=== PATIENT | male | born 1970 | race Caucasian/White ===

== ENCOUNTER 2021-01-31 13:21 | Emergency (ER) | payer BC ==
[2021-01-31] MEDS ORDERED: KETOROLAC TROMETHAMINE 15 MG/ML VIAL IM ONE (13:59)
[2021-01-31] MEDS ORDERED: ACETAMINOPHEN 325 MG TABLET (FP) PO ONE (13:59)
[2021-01-31 14:11] VITALS: BP 119/78; PULSE 59; TEMP 98.3; BMI 27.3
[2021-01-31] MEDS ORDERED: KETOROLAC TROMETHAMINE 15 MG/ML VIAL ONE (14:12)
[2021-01-31] MEDS ORDERED: ACETAMINOPHEN 325 MG TABLET (FP) ONE (14:12)
== END 2021-01-31 15:17 | disposition home or self-care (01) ==
LOC: FER 13:21
PROC: 3E0233Z Introduction of Anti-inflammatory into Muscle, Percutaneous Approach (ICD-10-PCS; principal; 2021-01-31)
DX: R68.84 Jaw pain (principal); M25.512 Pain in left shoulder; M54.2 Cervicalgia
CPT/HCPCS: 99284-25